=== PATIENT | male | born 1940 | race Caucasian/White ===

== ENCOUNTER 2025-03-22 13:59 | Emergency (ER) | payer MEDICARE, SELFPAY ==
[2025-03-22 14:01] VITALS: BP 214/106; PULSE 59; RESP 18; TEMP 35.8; O2SAT 97; BMI 24.2
[2025-03-22 14:21] VITALS: BP 201/113; PULSE 57; RESP 16; O2SAT 100
--- NOTE | 2025-03-22 14:30 | RAD_ITS ---
PROCEDURE: CHEST 1 VIEW (PORTABLE) 03/22/2025 REASON FOR EXAM: CORONARY ARTERY DISEASE TECHNIQUE: Frontal view of the chest. FINDINGS: The heart is normal in size. The lungs are clear. No acute osseous abnormalities. RAD/Chest 1 View (Portable) IMPRESSION: No Acute Findings. Reading Location: [id number]
[2025-03-22 14:31] LABS: Hematocrit 46.7 % (40-54); Hemoglobin 15.5 g/dL (13.0-16.5); Immature Granulocytes Count 0.030 X10^3/uL (0.0-0.0); Mean Corp Hgb Conc 33.2 g/dL (32-36); Mean Corpuscular Volume 95.3 fL (80-94); Mean Platelet Vol. 9.7 fl (6.2-12.0); NRBC Flagged by Analyzer 0 % (0-5); Platelet Count 215 K/mm3 (150-450); RBC Distribution Width CV 13.4 % (11.6-14.6); RBC Distribution Width SD 47.8 fl (35.1-43.9); Red Blood Count 4.90 M/mm3 (4.6-6.2); White Blood Count 8.0 K/mm3 (4.4-11.0)
[2025-03-22 14:44] LABS: Troponin T High Sensitivity 25 ng/L (<=22)
[2025-03-22 14:46] LABS: AST(SGOT) 26 U/L (<=37); Alanine Aminotransfer ALT/SGPT 11 U/L (<=46); Albumin, Serum 4.3 g/dL (3.4-4.8); Alkaline Phosphatase 70 U/L (40-129); Anion Gap 12 (5-15); BUN 18 mg/dL (4-19); BUN/Creat Ratio 15.8 RATIO (10-20); Calcium,Total 9.2 mg/dL (7.6-11.0); Carbon Dioxide 22.7 mmol/L (21.0-32.0); Chloride 103 mmol/L (98-108); Estimated Creatinine Clearance 50.69 ml/min (50-250); Globulin 3.1 g/dL (2.2-4.2); Glucose 105 mg/dL (70-99); Potassium 4.6 mmol/L (3.3-5.1)
--- NOTE | 2025-03-22 14:57 | CM.ED ---
Social Work Date of referral: 03/22/25 Reason for referral: No Advanced Care Directives (ACD's) on file. Referred by: Social Work Identification Patient provided consent to social work visit. Sider requested a copy of ADV's which patient agreed to bring in. Maggie Ramirez, EQUIPMENT HIRE MANAGER, ELECTRICAL ASSEMBLY SUPERVISOR
--- OUTSIDE RECORDS SUMMARY | 2025-03-22 15:02 | XMS RPT_ITS | CCD ---
Author Organization [facility] Results Test Name Value Interpretation Reference Range Facil ity CNOVon 11-03-2017 CNOV Office Visit ([facility]) JAIME TESFAYE ([id number]) 1940 MDate Time Provider Department11/03/17 3:00 PM NU LOUISE) WSTR During your visit today, we recorded the following information about you: Temperature Pulse Blood pressure Weight 98.1 degrees 72/minute 136/76 77.1 kgRachel MAYCOL Louise 11/03/2017 3:41 PM SignedSubjectiveHPIHPI Jaime Zunilda Tesfaye is a 77 year old male who presents today for CC of L eyeirritation that started last night after mowing the grass. I don't know if apiece of dirt or grass got in it. Notes that there's a foreign body sensationand discomfort.BP 136/76 Pulse 72 Temp 36.7 ?C (98.1 ?F) (Tympanic) Wt 77.1 kg (170lb) SpO2 99%ALLERGIESNo Known AllergiesThere is no problem list on file for this patient.No family history on file.Social History Marital status: Spouse name: Years of education: Number of children:Social History Main Topics Smoking status: Current Every Day Smoker Packs/day: 0.00 Years: 0.00 Smokeless tobacco: Never UsedReview of SystemsConstitutional: Negative for chills and fever.Eyes: Positive for pain (Eye irritation down in the corner itself) andredness. Negative for blurred vision, double vision and discharge.Endo/Heme/Aller gies: Negative for environmental allergies.ObjectivePhysic al ExamConstitutional: He is well-developed, well-nourished, and in no distress.HENT:Head: Normocephalic and atraumatic.Eyes: Lids are everted and swept, no foreign bodies found. Right eye exhibitsno discharge and no exudate. No foreign body present in the right eye. Left eyeexhibits no discharge and no exudate. No foreign body present in the left eye.Right conjunctiva is not injected. Left conjunctiva is injected.Slit lamp exam: The left eye shows corneal abrasion (at 3 o'clock and 6 'oclock) andfluorescein uptake (In areas as indicated on diagram). The left eye shows noforeign body. ASSESSMENT/PLAN:1. Corneal abrasion, left, initial encounter - ICD9: 918.1, ICD10: S05.02XAAs noted on slit lamp exam- will start topical ointment per rx- ERYTHROMYCIN 5 MG/GRAM (0.5 %) EYE OINTMENT Pt advised to see eye doctor if symptoms persist or progress.Reviewed red flags with patient and when to seek care sooner.MARK Sharma-Delilah Louise PA-C 11/03/2017 3:34 PM SignedCORNEAL ABRASIONS AND EROSIONSWhat is the cornea?The cornea is the clear front window of the eye. It covers the colored portionof the eye, much like a watch crystal covers the face of a watch. The corneais composed of five layers. The outermost layer is called the epithelium.What is a corneal abrasion?A corneal abrasion is an injury to the epithelium. Abrasions are painful.Common causes of corneal abrasions include problems from contact lenses,finger-nails, paper cuts, tree or mena limbs or rubbing of the eye. There aresome eye conditions, such as dry eye, that may make injury more likely.The corneal surface usually heals within a day or two, but the eye may be veryuncomfortable while it is healing. Tearing, light sensitivity and the feelingthat something is in the eye --- ?foreign body sensation? --- will accompanyeven a small abrasion.How are abrasions treated?A common treatment is to patch the scratched eye, thus preventing the blinkingeyelid from moving over the healing area. Another common treatment is repeatedapplication of ointment to the eye, which forms a soothing layer between theinner eye lid and the abrasion. Antibiotics are often used because of thesmall risk of infection. Sometimes a drop is used to dilate the pupil to helpwith pain associated with light sensitivity.Even after the surface has healed, the cornea may still be sensitive to windand dust. Often, additional lubrication is helpful, both during the day and atbedtime, until the sensitivity has disappeared. Some other diseases, such asdry eye or diabetes, may slow healing.What is a corneal erosion?A corneal erosion is a spontaneous breakdown of the epithelium, sometimes atthe site of an earlier abrasion. The symptoms are similar to a cornealabrasion: foreign body sensation, tearing and light sensitivity. Thesesymptoms may vary, are often unpredictable and may occur upon awakening. Anerosion may occur when the yes are dry or irritated.How are corneal erosions treated?Several treatments are used to alleviate the discomfort of erosions and tospeed healing:? Lubricating drops and ointments;? Drops or ointments containing salt;? A special contact lens used to bandage the cornea;? Micro-puncture of the epithelium;? Removal of the damaged epithelium.Recurrent corneal erosions can be stubborn and frustrating. Yourophthalmologist may be able to identify other contributing factors. Yourattention to extra lubrication for the cornea is often the buchanan to ending theerosion cycle.Referring Provider: SELF [[id number]]Allergies As of Date: 11/03/2017(No Known Allergies)Date Reviewed: 11/03/2017Reviewed by: Olivia Vásquez Ma - Fully AssessedReason for Visit: Eye Problem [43] Cmt: LT eye red and irritated X yesterdayPrimary Visit Diagnosis:Corneal abrasion, left, initial encounter [S05.02XA]Order(s):erythr omycin ophthalmic ointmentUse 1 application in the left eye every 6 hours for 5 days.Disp: 1 gRfl: 1Prescriptions as of 11/03/2017 Sig: ASPIRIN 81 MG TABLET,DELAYED * Take 81 mg by mouth once kirk* ERYTHROMYCIN 5 MG/GRAM (0.5 %* Use 1 application in the left*Problem List As Of Date: 11/03/2017(None) Other instructions from your clinician: CORNEAL ABRASIONS AND EROSIONS What is the cornea? The cornea is the clear front window of the eye. It covers the colored portion of the eye, much like a watch crystal covers the face of a watch. The cornea is composed of five layers. The outermost layer is called the epithelium. What is a corneal abrasion? A corneal abrasion is an injury to the epithelium. Abrasions are painful. Common causes of corneal abrasions include problems from contact lenses, finger-nails, paper cuts, tree or mena limbs or rubbing of the eye. There are some eye conditions, such as dry eye, that may make injury more likely. The corneal surface usually heals within a day or two, but the eye may be very uncomfortable while it is healing. Tearing, light sensitivity and the feeling that something is in the eye --- ?foreign body sensation? --- will accompany even a small abrasion. How are abrasions treated? A common treatment is to patch the scratched eye, thus preventing the blinking eyelid from moving over the healing area. Another common treatment is repeated application of ointment to the eye, which forms a soothing layer between the inner eye lid and the abrasion. Antibiotics are often used because of the small risk of infection. Sometimes a drop is used to dilate the pupil to help with pain associated with light sensitivity. Even after the surface has healed, the cornea may still be sensitive to wind and dust. Often, additional lubrication is helpful, both during the day and at bedtime, until the sensitivity has disappeared. Some other diseases, such as dry eye or diabetes, may slow healing. What is a corneal erosion? A corneal erosion is a spontaneous breakdown of the epithelium, sometimes at the site of an earlier abrasion. The symptoms are similar to a corneal abrasion: foreign body sensation, tearing and light sensitivity. These symptoms may vary, are often unpredictable and may occur upon awakening. An erosion may occur when the yes are dry or irritated. How are corneal erosions treated? Several treatments are used to alleviate the discomfort of erosions and to speed healing: ? Lubricating drops and ointments; ? Drops or ointments containing salt; ? A special contact lens used to bandage the cornea; ? Micro-puncture of the epithelium; ? Removal of the damaged epithelium. Recurrent corneal erosions can be stubborn and frustrating. Your material planning analyst may be able to identify other contributing factors. Your attention to extra lubrication for the cornea is often the buchanan to ending the erosion cycle.Prescriptions ordered this encounter Disp Refills Start End ERYTHROMYCIN 5 MG/GRAM (0.5 %) EYE O* 1 g 1 11/03/2017 11/08/2017 Route: LEFT EYE Sig: Use 1 application in the left eye every 6 hours for 5 days. Status:Closed by NU LOUISE on 11/03/17 [facility] 11[facility]-2017 Protein HNO ID: [id number] thor: Nu (Mark) Babita: (none)Author Type: Physician AssistantType: Progress NotesFiled: 11/03/2017 3:41 PMNote Text:SubjectiveHPIHPI Jaime Tesfaye is a 77 year old male who presents today for CC of L eyeirritation that started last night after mowing the grass. I don't knowif a piece of dirt or grass got in it. Notes that there's a foreign bodysensation and discomfort.BP 136/76 Pulse 72 Temp 36.7 ?C (98.1 ?F) (Tympanic) Wt 77.1 kg(170 lb) SpO2 99%ALLERGIESNo Known AllergiesThere is no problem list on file for this patient.No family history on file.Social History Marital status: Spouse name: Years of education: Number of children:Social History Main Topics Smoking status: Current Every Day Smoker Packs/day: 0.00 Years: 0.00 Smokeless tobacco: Never UsedReview of SystemsConstitutional: Negative for chills and fever.Eyes: Positive for pain (Eye irritation down in the corner itself) andredness. Negative for blurred vision, double vision and discharge.Endo/Heme/Aller gies: Negative for environmental allergies.ObjectivePhysic al ExamConstitutional: He is well-developed, well-nourished, and in no distress.HENT:Head: Normocephalic and atraumatic.Eyes: Lids are everted and swept, no foreign bodies found. Right eyeexhibits no discharge and no exudate. No foreign body present in the righteye. Left eye exhibits no discharge and no exudate. No foreign bodypresent in the left eye. Right conjunctiva is not injected. Leftconjunctiva is injected.Slit lamp exam: The left eye shows corneal abrasion (at 3 o'clock and 6 'oclock) andfluorescein uptake (In areas as indicated on diagram). The left eye showsno foreign body. ASSESSMENT/PLAN:1. Corneal abrasion, left, initial encounter - ICD9: 918.1, ICD10:S05.02XAAs noted on slit lamp exam- will start topical ointment per rx- ERYTHROMYCIN 5 MG/GRAM (0.5 %) EYE OINTMENT Pt advised to see eye doctor if symptoms persist or progress.Reviewed red flags with patient and when to seek care sooner.Nu Louise PA-C Normal [facility] Encounters Encounter Date Encounter Type Care Provider Facility Start: 11-03-2017 End: 11-05-2017 Ambulatory [facility] Summary Purpose Family History No Family History Records Found Advance Directives No Advanced Directives Records Found Additional Source Comments (unrecognized sect ion and content) No Status Records Found INFORMATION SOURCE (unrecogn ized section and content) DATE CREATED AUTHOR 11/05/2017 [facility] FOR RECORDS PERTAINING TO PATIENTS WHO ARE OR HAVE BEEN ENROLLED IN A CHEMICAL DEPENDENCY/SUBSTANCEABUSE PROGRAM, SOME INFORMATION MAY BE OMITTED. This clinical summary was aggregated from multiple sources. Caution should be exercised in using it in the provision of clinical care. This summary normalizes information from multiple sources, and as a consequence, information in this document may materially change the coding, format and clinical context of patient data. In addition, data may be omitted in some cases. CLINICAL DECISIONS SHOULD BE BASED ON THE PRIMARY CLINICAL RECORDS. [employer] provides no warranty or guarantee of the accuracy or completeness of information in this document.
[2025-03-22 15:35] LABS: Mucous, Urine 0 SEEN /hpf (<or=2+); Squamous Epithelial Cells - UA 0 SEEN /hpf (0-5)
[2025-03-22 15:39] LABS: Color, Urine Yellow (Yellow); Glucose, Dipstick Normal (Normal); Ketone-Dipstick Negative (Negative); Leukocyte Esterase-Dipstick Negative /ul (Negative); Nitrite-Dipstick Negative (Negative); Occult Blood-Urine 25 /ul (Negative); Protein-Dipstick 15 mg/dl (Negative); Specific Gravity, Urine 1.005 (1.002-1.030); Urine Bilirubin Dipstick Negative (Negative)
--- NOTE | 2025-03-22 15:43 | EKG12_ITS ---
Test Reason : ARRYTH Blood Pressure : */* mmHG Vent. Rate : 59 BPM Atrial Rate : 59 BPM P-R Int : 144 ms QRS Dur : 96 ms QT Int : 416 ms P-R-T Axes : 76 57 21 degrees QTcB Int : [address] & T wave abnormality, consider anterior ischemia Abnormal ECG Confirmed by CHIKIS DUMONT, JENNIFER ([id number]), newspaper or periodical editor LAKEISHA RICHARDS ([id number]) on 03/25/2025 1:57:44 PM Referred By: Confirmed By: JENNIFER DIOP MD
--- NOTE | 2025-03-22 15:46 | EX.ED.DYSGE1 ---
HPI History of Present Illness Chief Complaint: Hypertension Narrative Narrative: 84-year-old male with no significant past medical history presents with elevated blood pressure and lightheadedness over the last few days. His son took his blood pressure at home and it was elevated to 170s. Patient denies any headache, no shortness of breath or chest pain, no leg swelling. PFSH PFS Medical History no medical history Home Medications ?Medication ?Instructions ?Recorded ?Last Taken ?Type losartan 50 mg tablet 50 mg PO DAILY #30 tabs 03/22/25 Unknown Rx Allergy/AdvReac Type Severity Reaction Status Date / Time No Known Allergies Allergy Verified 03/22/25 14:01 Social History Smoking Status: Current every day smoker tobacco type: cigarettes ROS ROS ED ROS Narrative Asymptomatic with elevated blood pressure with the exception of lightheadedness over the last few days. Son took blood pressure at home using his blood pressure cuff and it was elevated in the 170s. Patient denies any chest pain, no headache, no shortness of breath, no leg swelling. No other symptoms. EXAM Physical Exam Narrative Exam Narrative: Afebrile. Vital signs noted. Nontoxic-appearing. Cardiovascular examination reveals mild bradycardia. Lungs clear to auscultation bilaterally. Abdomen soft nontender with positive bowel sounds. Neurological examination nonfocal, nonlateralizing. Moves all extremities. Able to ambulate to the bathroom without difficulty. Const Vital Signs: 03/22/25 14:01 03/22/25 14:21 03/22/25 14:21 Temperature 96.5 F L Temperature Source Temporal Pulse Rate 59 L 57 L Respiratory Rate 18 16 Respiratory Effort Normal Respiratory Pattern Normal Blood Pressure 214/106 H 201/113 H Blood Pressure Mean 142 142 Pulse Ox 97 100 Oxygen Delivery Method Room Air Room Air MDM MDM MDM Narrative Medical decision making narrative: The differential diagnosis includes but not limited to asymptomatic hypertension/new diagnosis versus ACS versus hypertensive urgency versus hypertensive emergency. EKG will be obtained as well as baseline laboratory work. Chest x-ray in 1 view interpreted by myself independently shows no evidence of an acute process, no pneumonia or pneumothorax. I reviewed the radiology report which confirms my independent interpretation. I reviewed his laboratory work and he has normal white count of 8.0 with hemoglobin normal at 15.5, hematocrit 46.7, platelet count 215. Review of his CMP shows normal sodium, normal potassium, BUN normal at 18 with creatinine normal at 1.14, LFTs are grossly unremarkable. High-sensitivity troponin is slightly elevated at 25 which I think is nonspecific. Repeat in 2 hours is pending. Urinalysis is negative for infection but there are 15 protein, 0 bacteria and 0 white cells. I do not feel antibiotics are indicated. Patient had been given hydralazine as he had elevated blood pressure systolically at 214 and 201. After 10 mg, he remained asymptomatic and stated he feels well. He will be given additional 10 mg of hydralazine. His son states that his primary care physician that he sees personally is Dr. Torres, and although the patient has not seen a primary care provider in 15 years, I discussed the patient with Dr. Torres for close follow-up. He will be able to see him in the office. Given that the patient is bradycardic I do not feel metoprolol is a good choice/beta-samantha for hypertension. In discussion with Dr. Torres, he would like him started on losartan 50 mg orally. We called in a prescription for his losartan. He was told to keep a log of his blood pressures on a daily basis to take to his primary care provider that he is going to see. As his second troponin is pending, this will be checked prior to discharge. Patient will be signed out to Dr. Tong Wright to check the EKG in the repeat troponin and make final disposition on this patient which is anticipated discharge as he remains asymptomatic and his blood pressure has lowered appropriately. Currently, patient is in stable condition. History & Record Review Discussion w/independent historian: Patient and Family Additional record(s) reviewed:: No prior records (No prior ED visits) Lab Data Attestation: I reviewed the patient's lab results. Labs: Laboratory Results - last 24 hr 03/22/25 03/22/25 14:15 15:25 WBC 8.0 RBC 4.90 Hgb 15.5 Hct 46.7 MCV 95.3 H MCH 31.6 MCHC 33.2 RDW Std Deviation 47.8 H RDW Coeff of Frida 13.4 Plt Count 215 MPV 9.7 Immature Gran % (Auto) 0.400 Neut % (Auto) 56.9 Lymph % (Auto) 31.3 Kaufman % (Auto) 8.1 Eos % (Auto) 2.4 Baso % (Auto) 0.9 Absolute Neuts (auto) 4.6 Absolute Lymphs (auto) 2.50 Nucleated RBC % 0 Sodium 137 Potassium 4.6 Chloride 103 Carbon Dioxide 22.7 Anion Gap 12 BUN 18 Creatinine 1.14 Estim Creat Clear Calc 50.69 Est GFR (MDRD) Non-Af 64 BUN/Creatinine Ratio 15.8 Glucose 105 H Calcium 9.2 Total Bilirubin 0.40 AST 26 ALT 11 Alkaline Phosphatase 70 Troponin T High Sens 25 H Total Protein 7.4 Albumin 4.3 Globulin 3.1 Albumin/Globulin Ratio 1.4 Urine Color Yellow Urine Clarity Clear Urine pH 7.0 Ur Specific [place] 1.005 Urine Protein 15 H Urine Glucose (UA) Normal Urine Ketones Negative Urine Occult Blood 25 H Urine Nitrite Negative Urine Bilirubin Negative Urine Urobilinogen Normal Ur Leukocyte Esterase Negative Urine RBC 0-5 SEEN Urine WBC 0 SEEN Ur Squamous Epith Cells 0 SEEN Urine Bacteria 0 SEEN Urine Mucus 0 SEEN Radiography Diagnostic Testing: Clinical Impression(s) from Imaging Studies Chest X-Ray 03/22/25 14:30 IMPRESSION: No Acute Findings. Reading Location: [address] Discharge Plan Triage Chief Complaint: Hypertension ED Provider: Giovany Romeo Dx/Rx/DC Orders Clinical Impression: Hypertension, Elevated blood pressure reading without diagnosis of hypertension Instructions: ED High Blood Pressure New Begin Tx Prescriptions: New losartan 50 mg tablet 50 mg PO DAILY Qty: 30 0RF Primary Care Provider: Care Physician,No Primary Referrals: Shashank Torres DO [Med Staff - [facility] [place]] - 3-5 Days Care Physician,No Primary [Primary Care Provider, Medical] Activity Restrictions/Additional Instructions: Keep a log of your blood pressures, taking at the same time daily. Show it to your primary care provider. Take the antihypertensive medication as directed. Return to the emergency department with headache, chest pain, shortness of breath, or any new or worsening symptoms. Print Language: French Disposition Disposition: Home, Self Care
[2025-03-22 15:47] LABS: Red Blood Cells-Urine 0-5 SEEN /hpf (0-5)
[2025-03-22 16:00] VITALS: BP 163/87; PULSE 56; RESP 13; O2SAT 98
--- NOTE | 2025-03-22 16:01 | EKG12_ITS ---
Test Reason : Blood Pressure : */* mmHG Vent. Rate : 60 BPM Atrial Rate : 60 BPM P-R Int : 146 ms QRS Dur : 92 ms QT Int : 426 ms P-R-T Axes : 64 55 11 degrees QTcB Int : 426 ms Sinus rhythm with occasional Premature ventricular complexes Nonspecific ST and T wave abnormality Abnormal ECG No previous ECGs available Confirmed by CHIKIS DUMONT, JENNIFER ([id number]), food editor LAKEISHA RICHARDS ([id number]) on 03/25/2025 9:28:42 AM Referred By: Confirmed By: JENNIFER DIOP MD
[2025-03-22 17:02] LABS: Troponin T High Sens 2 HR 27 ng/L (<=22)
[2025-03-22 18:02] VITALS: BP 165/91; PULSE 74; RESP 12; TEMP 36.6; O2SAT 95
== END 2025-03-22 18:09 | disposition home or self-care (01) ==
PROVIDERS: Emergency Provider Emergency Medicine; Visit Provider Emergency Medicine
DX: I10 Essential (primary) hypertension (principal); F17.210 Nicotine dependence, cigarettes, uncomplicated
CPT/HCPCS: 71045; 80053; 81001; 84484; 85025; 93005; 96374; 99284; A4216